=== PATIENT | female | born 1985 | race Caucasian/White ===

== ENCOUNTER 2019-08-08 07:49 | Day surgery (SDC) | payer BC, MEDICAID ==
[2019-08-08] MEDS ORDERED: Lactated Ringers 1,000 ML IV SCH (08:00)
[2019-08-08] MEDS ORDERED: Midazolam 1 MG/ML 2 ML SDV ONE (08:22)
[2019-08-08] MEDS ORDERED: fentaNYL 250 MCG/5 ML SDV ONE (08:22)
[2019-08-08] MEDS ORDERED: Propofol 200 MG/20 ML SDV ONE (08:22)
[2019-08-08] MEDS ORDERED: Norflurane/HFc 245FA Medium Stream Spray 103.5 ML Can TOP PRN (08:48)
[2019-08-08] MEDS ORDERED: Ketamine 500 mg/10 ML MDV ONE (09:06)
--- NOTE | 2019-08-08 09:06 | PCM.PN ---
- General Info Date of Service: 08/08/19 - Review of Systems Systems Review Comment:: 34 y/o female with ventral incisional hernia here for repair with mesh. she is medically stable to proceed with no significant changes in her health status since her recent evaluation. I have discussed the proposed ventral hernia repair with the patient. The procedures again reviewed with her as well as instructions. She agrees to proceed accepting risks. - Patient Data Weight - Most Recent: 99.79 kg Lab Results Last 24 Hours: Laboratory Results - last 24 hr 08/08/19 Range/Units 08:00 Urine HCG, Qual Negative Med Orders - Current: Current Medications Lactated Ringer's (Ringers, Lactated) 1,000 mls @ 125 mls/hr IV ASDIRECTED FAYE Last Admin: 08/08/19 09:03 Dose: 125 mls/hr Norflurane (Pain Ease [place]) 1 ml TOP ASDIRECTED PRN PRN Reason: IV starts or lab draws Sodium Chloride (Saline Flush) 10 ml FLUSH ASDIRECTED PRN PRN Reason: Keep Vein Open Discontinued Medications Fentanyl (Sublimaze) Confirm Administered Dose 500 mcg .ROUTE .STK-MED ONE Stop: 08/08/19 08:23 Midazolam HCl (Versed 1 Mg/Ml) Confirm Administered Dose 2 mg .ROUTE .STK-MED ONE Stop: 08/08/19 08:23 Propofol (Diprivan 20 Ml) Confirm Administered Dose 200 mg .ROUTE .STK-MED ONE Stop: 08/08/19 08:23 - Problem List Review Problem List Initiated/Reviewed/Updated: Yes - My Orders Last 24 Hours: My Active Orders 08/08/19 08:00 Patient Status [ADT] Routine Peripheral IV Care [RC] . DIRECTED Verify Patient Consent Obtain [RC] ASDIRECTED Lactated Ringers [Ringers, Lactated] 1,000 ml IV ASDIRECTED Sodium Chloride 0.9% [Saline Flush] 10 ml FLUSH ASDIRECTED PRN Peripheral IV Insertion Adult [OM.PC] Routine 08/08/19 08:48 Norflurane/HFc 245FA [Pain Ease [place]] 1 ml TOP ASDIRECTED PRN - Assessment Assessment:: ventral incisional hernia - Plan Plan:: ventral incisional hernia repair with mesh
[2019-08-08] MEDS ORDERED: Ketorolac 30 MG/ML SDV IVPUSH ONE (09:10)
[2019-08-08] MEDS ORDERED: Dexamethasone 10 MG/ML SDV IVPUSH ONE (09:10)
[2019-08-08] MEDS ORDERED: Succinylcholine 200 MG/10 ML MDV IV ONE (09:10)
[2019-08-08] MEDS ORDERED: Neostigmine Methylsulfate 10 MG/10 ML MDV IV ONE (09:10)
[2019-08-08] MEDS ORDERED: Rocuronium 100 MG/10 ML MDV IV ONE (09:10)
[2019-08-08] MEDS ORDERED: Ondansetron 4 MG/2 ML SDV IVPUSH ONE (09:10)
[2019-08-08] MEDS ORDERED: Glycopyrrolate 0.2 MG/ML SDV IVPUSH ONE (09:10)
[2019-08-08] MEDS ORDERED: ceFAZolin 1 GM Vial IV ONE (09:10)
[2019-08-08] MEDS ORDERED: Ketamine 500 mg/10 ML MDV IV ONE (09:10)
[2019-08-08] MEDS ORDERED: ePHEDrine 50 MG/ML SDV IV ONE (09:10)
[2019-08-08] MEDS ORDERED: Ondansetron 4 MG/2 ML SDV IVPUSH PRN ×2 (11:56→12:02)
--- NOTE | 2019-08-08 11:56 | PCM.OPNOTE ---
- General Post-Op/Procedure Note Date of Surgery/Procedure: 08/08/19 Operative Procedure(s): Repair Ventral Incisional Hernia with Mesh Findings: large ventral hernia above umbilicus Pre Op Diagnosis: Ventral Incisional Hernia Post-Op Diagnosis: Same Anesthesia Technique: General ET Tube Primary Surgeon: Pramod Mccloud Pathology: Hernia sac Output, Urine Amount: 0 EBL in mLs: 50 Surgical Drain/Tube Type: [place] Drain Complications: None Condition: Good
[2019-08-08] MEDS ORDERED: diphenhydrAMINE 25 MG Cap PO PRN (12:00)
[2019-08-08] MEDS ORDERED: Albuterol/Ipratropium 3.0-0.5 MG/3 ML Neb Soln INH PRN (12:00)
[2019-08-08] MEDS ORDERED: diphenhydrAMINE 50 MG/ML SDV IVPUSH PRN (12:00)
[2019-08-08] MEDS ORDERED: Naloxone 0.4 MG/ML SDV IVPUSH PRN (12:00)
[2019-08-08] MEDS ORDERED: ceFAZolin 1 GM Vial IVPUSH SCH (12:00)
[2019-08-08] MEDS: SODIUM CHLORIDE 0.9% IVPUSH PRN ×4 (12:50→17:49)
[2019-08-08] MEDS: Lactated Ringers 1,000 ML IV SCH (12:50)
[2019-08-08] MEDS: FENTANYL IVPUSH PRN ×4 (12:50→17:49)
[2019-08-08] MEDS ORDERED: LORazepam 2 MG/ML SDV IVPUSH PRN (14:45)
[2019-08-08] MEDS: Acetaminophen/HYDROcodone 325-5 MG Tab PO PRN ×2 (16:56→21:04)
[2019-08-08] MEDS: ceFAZolin 1 GM Vial IVPUSH SCH (16:58)
[2019-08-08] MEDS: Sodium Chloride 0.9% 10 ML Syringe FLUSH PRN ×2 (17:01→17:51)
[2019-08-08] MEDS: Ketorolac 30 MG/ML SDV IVPUSH SCH (17:48)
[2019-08-08] MEDS ORDERED: Simethicone 80 MG Tab.Chew PO PRN (20:53)
[2019-08-08] MEDS: Docusate Sodium 100 MG Cap PO SCH (21:25)
[2019-08-08] MEDS: Famotidine 20 MG/2 ML SDV IVPUSH SCH (21:25)
[2019-08-09] MEDS: Ketorolac 30 MG/ML SDV IVPUSH SCH ×3 (00:11→11:38)
[2019-08-09] MEDS: ceFAZolin 1 GM Vial IVPUSH SCH (00:13)
[2019-08-09] MEDS: Lactated Ringers 1,000 ML IV SCH (00:31)
[2019-08-09] MEDS: SODIUM CHLORIDE 0.9% IVPUSH PRN ×2 (01:08)
[2019-08-09] MEDS: FENTANYL IVPUSH PRN ×2 (01:08)
[2019-08-09 08:04] LABS: CHLORIDE,CL 107 mmol/L (98-107); SODIUM,NA 141 mmol/L (136-145)
[2019-08-09] MEDS ORDERED: Bisacodyl 5 MG Tab PO ONE (08:39)
[2019-08-09] MEDS ORDERED: Magnesium Hydroxide 400 MG/5 ML Susp 30 ML Cup PO ONE (08:39)
[2019-08-09] MEDS: Famotidine 20 MG/2 ML SDV IVPUSH SCH (08:56)
[2019-08-09] MEDS: Docusate Sodium 100 MG Cap PO SCH (08:56)
--- NOTE | 2019-08-09 09:21 | OR ---
Date of Procedure: 08/08/2019 REFERRING PROVIDER: Haley Loving PA-C PREOPERATIVE DIAGNOSIS: Ventral incisional hernia. POSTOPERATIVE DIAGNOSIS: Ventral incisional hernia. OPERATION PERFORMED: Repair of ventral incisional hernia with mesh. INDICATIONS FOR SURGERY: This 34-year-old female has a history of multiple previous abdominal surgeries including a recent laparotomy through an upper midline incision. She has developed a hernia in the midportion of this incision. This hernia is increasing in size and symptoms, and she comes for elective repair. FINDINGS: In the upper midline of the patient's abdomen, there is a large ventral incisional hernia in the midline. The main hernia is in the lower aspect of the incision, but the entire upper length of the incision shows multiple smaller defects and attenuation of the fascia, so the hernia extends along the entire length of the incision, a distance of approximately 8 inches. There are some minor omental adhesions to the hernia sac, but no other indication of bowel involvement in this hernia. DESCRIPTION OF PROCEDURE: The patient was taken to the operating room. She was given general endotracheal anesthesia and the abdomen was sterilely prepped and draped. Vertical midline incision was made utilizing the old surgical scar. Dissection proceeded down onto the hernia sac, which was carefully identified and isolated from the surrounding subcutaneous tissue down to the level of the fascia. The hernia sac was opened, and then the hernia sac was excised from the edge of the fascia with cautery. The fascial edge is clearly defined, trimmed of fatty tissue back to good quality fascia exposing a good surface for reapproximation. It was noted that the upper portion of the fascial incision had multiple defects and attenuated fascia, so this was opened as well, and this attenuated fascia and these defects were also excised to provide a clean approximating fascial surface along the entire length of the incision. Because of the patient's history of multiple intestinal adhesions and GI problems after multiple previous surgeries, it was elected to place the mesh in an onlay fashion so there would be no complication of her GI function from intraperitoneal mesh. This was then carried out by approximating the fascial edges in the midline with interrupted #1 Prolene in a Smead-Celestin suturing technique and incorporating on the anterior surface of the fascia the polypropylene mesh. This is carried out along the entire length of the fascial defect approximating all of the fascial edges in the midline and securely closing the hernia defect. Once the defect had been completely closed, the lateral edge of the mesh is secured down to the exposed underlying anterior surface of the fascia with a running 2-0 Vicryl. The wound was irrigated with Ancef and saline solution, which had also been used to soak the mesh prior to its placement. The [place] drain was placed through a separate stab incision onto the surface of the mesh and connected to bulb suction. The drain was secured to the skin with 2-0 silk. Interrupted 3-0 Vicryl was then used to approximate the subcutaneous tissue down to the underlying mesh to limit seroma formation, and the skin was closed with skin jose. Sterile dressing was placed. The patient was then awakened, extubated, and taken from the operating room in satisfactory condition. ESTIMATED BLOOD LOSS: 50 mL. COMPLICATIONS: None. PROGNOSIS: Good. HAL Mccloud MD /[id number] MTDD
[2019-08-09] MEDS: Acetaminophen/HYDROcodone 325-5 MG Tab PO PRN ×2 (09:31→13:34)
[2019-08-09] MEDS ORDERED: FLU Vacc QS2019-20(6MOS+)/PF 60 MCG/0.5 ML SYRINGE IM ONE (10:00)
--- NOTE | 2019-08-09 13:16 | PCM.DCSUM1 ---
Discharge Summary - Hospital Course HPI Initial Comments: See admission H&P Brief History: See admission H&P. Diagnosis: Stroke: No Modified Dickenson Scale: No Symptoms at All Modified Lorie Scale Score: 0 - Discharge Data Discharge Date: 08/09/19 Discharge Disposition: Home, Self-Care 01 Condition: Good - Referral to Home Health Primary Care Physician: Haley Loving PA-C - Discharge Diagnosis/Problem(s) (1) Abdominal hernia SNOMED Code(s): 80635588 ICD Code: K46.9 - UNSPECIFIED ABDOMINAL HERNIA WITHOUT OBSTRUCTION OR GANGRENE Status: Acute Priority: High Current Visit: Yes Problem Details : Pramod Mccloud MD did consult with me after the incisional ventral abdominal hernia repair, which should occur without complications on 08/08/2019. Note that the patient did receive postoperative IV antibiotics, however does not need to be discharged with antibiotics per recommendations from her general surgeon as above. He is also requesting discharge with limited amount of narcotic medications with the patient extensively counseled prior to discharge about using this prescription for severe pain only. Follow-up by regular providers as per discharge instructions. Activity restrictions were discussed. Some delay in discharge secondary to problems with constipation from her IV fentanyl and oral Sweet[place], which she received during this hospitalization. Note previous history of recurrent bowel obstructions with patient needing Colace and milk of magnesia prior to discharge. Qualifiers: Hernia type: ventral Obstruction and gangrene presence: without obstruction or gangrene Qualified Code(s): K43.9 - Ventral hernia without obstruction or gangrene (2) Obesity SNOMED Code(s): 008890638, 145400608 ICD Code: E66.9 - OBESITY, UNSPECIFIED Status: Chronic Priority: Medium Current Visit: Yes Problem Details: Status post gastric bypass surgery with excellent weight loss after this procedure. Continue weight loss and moderation , post-gastric bypass supplements, etc. Qualifiers: Obesity type: due to excess calories Obesity classification: adult class 1 (BMI 30 - 34.9) Serious obesity comorbidity presence: without serious comorbidity Body mass index: unspecified BMI Qualified Code(s): E66.09 - Other obesity due to excess calories (3) Anemia SNOMED Code(s): 332734868 ICD Code: D64.9 - ANEMIA, UNSPECIFIED Status: Acute Priority: Medium Current Visit: Yes Onset Date: 08/09/19 Problem Details: Mild anemia with status post gastric bypass. No significant blood loss during surgical procedure per consultation from general surgeon as above. Continue to observe closely by regular provider. Qualifiers: Anemia type: unspecified type Qualified Code(s): D64.9 - Anemia, unspecified (4) Hypoalbuminemia SNOMED Code(s): 412388899 ICD Code: E88.09 - OTH DISORDERS OF PLASMA-PROTEIN METABOLISM, NEC Status: Acute Priority: Medium Current Visit: Yes Onset Date: 08/09/19 Problem Details: Observe for now - Patient Summary/Data Operative Procedure(s) Performed: Repair Ventral Incisional Hernia with Mesh Complications: None Consults: Pramod Mccloud MD-General surgeon Labs Pending at D/C: None Recommended Follow-up Testing/Procedures: As per discharge instructions Planned Operative Procedure(s) after DC: None Hospital Course: The patient underwent an outpatient ventral abdominal hernia repair without complications. She was subsequently transferred to observation status for pain control with CLIENT ARCHITECT IV fentanyl with an overall good pain control. The patient also did receive some occasional oral Sweetwater with additional regular scheduled IV Toradol. IV Pepcid was given as GI prophylaxis. Patient did have some problems with constipation secondary to the narcotic medications, which was successfully treated with Dulcolax and milk of magnesia. Further close follow- up by regular provider and general surgeon as per discharge instructions. Note that the patient did have a good bowel movement and had excellent urine output prior to discharge. No complications during this hospitalization. - Patient Instructions Diet: Full Liquid Diet Diet, Other: Advance to heart healthy post gastric bypass diet thereafter Activity: As Tolerated, No Lifting Over 10 Pounds Driving: Do Not Drive Showering/Bathing: May Shower (Keep WILFRIDO drain site dry) Wound/Incision Care: Keep Operative Site/Wound Site Clean and Dry, Change Dressing Daily Notify Provider of: Fever, Increased Pain, Swelling and Redness, Drainage, Nausea and/or Vomiting - Discharge Plan *PRESCRIPTION DRUG MONITORING PROGRAM REVIEWED*: Yes *COPY OF PRESCRIPTION DRUG MONITORING REPORT IN PATIENT OTIS: Yes Prescriptions/Med Rec: Acetaminophen/HYDROcodone [[place] 325-5 MG] 1 tab PO Q4H PRN #10 tablet PRN Reason: Pain (Severe 7-10) Docusate Sodium [Colace] 100 mg PO BID #30 cap Home Medications: Home Meds Vit/Iron Fum/Folic AC [ Tablet] 1 each PO DAILY 08/12/13 [ History] Vitamin B Complex 1 each PO QAM 08/12/13 [History] Ferrous Fumarate 324 mg PO BID 10/06/15 [History] Thiamine [Vitamin B-1] 100 mg PO DAILY 10/07/15 [History] Cyanocobalamin (Vitamin B-12) [Cyanocobalamin Injection] 1,000 mcg IJ ASDIRECTED 08/07/19 [History] Ipratropium/Albuterol Sulfate [Iprat-Albut 0.5-3(2.5) MG/3 ML] 3 ml INH Q4HR PRN 08/07/19 [History] Iron,Carbonyl/Ascorbic Acid [Vitron-C Tablet] 1 tab PO DAILY 08/07/19 [History] Non-Formulary Medication [NF Drug] 2 tab PO DAILY 08/07/19 [History] Cholecalciferol (Vitamin D3) [Vitamin D3] 25 mcg PO DAILY 08/08/19 [History] Zinc Gluconate [Zinc] 50 mg PO DAILY 08/08/19 [History] Acetaminophen/HYDROcodone [[place] 325-5 MG] 1 tab PO Q4H PRN #10 tablet 08/09/19 [Rx] Docusate Sodium [Colace] 100 mg PO BID #30 cap 08/09/19 [Rx] Simethicone 160 mg PO Q6H PRN tab.chew 08/09/19 [Rx] Oxygen Therapy Mode: Room Air Patient Handouts: Ventral Hernia, Hernia, Adult, [id number] - Discharge Summary/Plan Comment DC Time >30 min.: Yes (Coordination of care ) Discharge Summary/Plan Comment: As above. Extensive precautions were given to the patient, who is in agreement with the treatment plan. See Patient Instructions for further treatment and plan. - General Info Date of Service: 08/09/19 Admission Dx/Problem (Free Text: Incisional ventral abdominal hernia Functional Status: Reports: Pain Controlled, Tolerating Diet, Ambulating, Urinating, Incentive Spirometry. Denies: New Symptoms Numeric/FACES Score: 5 - Review of Systems General: Reports: Fever (Postoperatively however resolved at time of discharge ) , Appetite (Adequate). Denies: Weakness, Fatigue, Malaise, Chills, Night Sweats HEENT: Reports: No Symptoms. Denies: Dysphasia, Ear Pain, Eye Pain, Headaches, Sinus Congestion, Sore Throat, Rhinitis, Visual Changes Pulmonary: Reports: No Symptoms. Denies: Shortness of Breath, Pleuritic Chest Pain, Cough, Sputum, Hemoptysis, Wheezing Cardiovascular: Reports: Edema (Stable dependent). Denies: Chest Pain, Palpitations, Dyspnea on Exertion, Orthopnea, Lightheadedness Gastrointestinal: Reports: Abdominal Pain, Constipation, Flatus. Denies: Decreased Appetite, Diarrhea, Difficulty Swallowing, Hematochezia, Melena, Nausea, Vomiting Genitourinary: Reports: No Symptoms. Denies: Dysuria, Frequency, Burning, Pain , Urgency, Incontinence, Hematuria, Retention, Flank Pain Musculoskeletal: Reports: No Symptoms. Denies: Neck Pain, Shoulder Pain, Arm Pain, Back Pain, Leg Pain Skin: Reports: Other (Operative site clean and dry). Denies: Diaphoresis, Pruritis, Rash Neurological: Reports: No Symptoms. Denies: Confusion, Dizziness, Numbness, Paresthesia, Tingling, Weakness Psychiatric: Reports: No Symptoms. Denies: Confusion, Depression, Anxiety, Agitation, Hallucinations, Homicidal Ideation - Patient Data Vitals - Most Recent: Last Vital Signs Temp 36.8 C 08/09/19 08:00 Pulse 77 08/09/19 08:00 Resp 16 08/09/19 08:00 BP 107/57 L 08/09/19 08:00 Pulse Ox 100 08/09/19 08:00 Vital Signs - 24 hr 08/08/19 08/08/19 08/08/19 15:00 16:00 20:00 Temperature [ 37.9 C 37.4 C 37.8 C Oral] Pulse, Peripheral [ Left Pulse Oximetry] Pulse, 83 68 85 Peripheral [ Right Pulse Oximetry] Respiratory 16 16 16 Rate Blood Pressure 116/63 116/61 115/58 L [Left Lower Arm ] Blood Pressure [Left Upper Arm ] O2 Sat by Pulse 99 100 99 Oximetry 08/08/19 08/09/19 08/09/19 22:11 00:00 04:00 Temperature [ 36.9 C 37.0 C 37.0 C Oral] Pulse, 68 68 Peripheral [ Left Pulse Oximetry] Pulse, Peripheral [ Right Pulse Oximetry] Respiratory 16 16 Rate Blood Pressure [Left Lower Arm ] Blood Pressure 107/58 L 94/59 L [Left Upper Arm ] O2 Sat by Pulse 96 100 Oximetry 08/09/19 08/09/19 08:00 12:00 Temperature [ 36.8 C 37.2 C Oral] Pulse, Peripheral [ Left Pulse Oximetry] Pulse, 77 81 Peripheral [ Right Pulse Oximetry] Respiratory 16 16 Rate Blood Pressure 107/57 L 116/64 [Left Lower Arm ] Blood Pressure [Left Upper Arm ] O2 Sat by Pulse 100 100 Oximetry Weight - Most Recent: 99.79 kg I&O - Last 24 hours: Intake & Output 08/08/19 08/09/19 08/09/19 22:59 06:59 14:59 Intake Total 1290 1152 640 Output Total 750 730 300 Balance 540 422 340 Imaging Impressions - Last 24 hrs: Official chest x-ray report from 08/09/2019, including chest x-ray upright, 1 view, and 1 view upright abdominal view, shows normal mild postoperative free air with somewhat increased bowel gaseous distention however no evidence fluid levels, ileus, obstruction, pulmonary infiltrates, pneumothorax, etc. Lab Results - Last 24 hrs: Laboratory Results - last 24 hr 08/09/19 08/09/19 Range/Units 07:25 07:25 WBC 9.8 (4.0-10.2) K/uL RBC 3.52 L (3.77-5.09) M/uL Hgb 11.0 L (11.7-15.5) g/dL Hct 33.6 L (34.0-46.0) % MCV 95.5 (84.0-98.0) fL MCH 31.3 (28.2-33.3) pg MCHC 32.7 (31.7-36.0) g/dL RDW 12.4 (11.2-14.1) % Plt Count 285 (150-350) K/uL Neut % (Auto) 67.4 (45.0-80.0) % Lymph % (Auto) 20.5 (10.0-50.0) % [place] % (Auto) 8.2 (2.0-14.0) % Eos % (Auto) 3.6 (0.0-5.0) % Baso % (Auto) 0.3 (0.0-2.0) % Neut # (Auto) 6.61 (1.40-7.00) K/uL Lymph # (Auto) 2.01 (0.50-3.50) K/uL [place] # (Auto) 0.80 (0.00-1.00) K/uL Eos # (Auto) 0.35 (0.00-0.50) K/uL Baso # (Auto) 0.03 (0.00-0.20) K/uL Sodium 141 (136-145) mmol/L Potassium 4.2 (3.5-5.1) mmol/L Chloride 107 (98-107) mmol/L Carbon Dioxide 24.4 (21.0-32.0) mmol/L BUN 10 (7-18) mg/dL Creatinine 0.79 (0.51-1.17) mg/dL Est Cr Clr Drug Dosing 84.57 mL/min Estimated GFR (MDRD) > 60 mL/min Glucose 105 (74-106) mg/dL Calcium 8.6 (8.5-10.1) mg/dL Total Bilirubin 0.4 (0.2-1.0) mg/dL AST 16 (15-37) U/L ALT 19 (12-78) U/L Alkaline Phosphatase 92 (46-116) IU/L Total Protein 6.1 L (6.4-8.2) g/dL Albumin 3.0 L (3.4-5.0) g/dL ALFREDA Results - Last 24 hrs: None Med Orders - Current: Current Medications Hydrocodone Bitart/Acetaminophen ([place] 325-5 Mg) 2 tab PO Q4H PRN PRN Reason: Pain (moderate 4-6) Last Admin: 08/09/19 09:31 Dose: 2 tab Albuterol/Ipratropium (Duoneb 3.0-0.5 Mg/3 Ml) 3 ml INH Q4HR PRN PRN Reason: Shortness of Breath Fentanyl 300 mcg/ Sodium (Chloride 24 ml) 0 mcg IVPUSH .CLIENT ARCHITECT PRN; Protocol PRN Reason: Pain Last Admin: 08/09/19 01:08 Dose: 30 ml Diphenhydramine HCl (Benadryl) 25 mg IVPUSH Q6H PRN PRN Reason: Itching Last Admin: 08/08/19 14:37 Dose: 25 mg Diphenhydramine HCl (Benadryl) 25 mg PO Q6H PRN PRN Reason: Itching Docusate Sodium (Colace) 100 mg PO BID [facility] Last Admin: 08/09/19 08:56 Dose: 100 mg Famotidine (Pepcid) 20 mg IVPUSH Q12H [facility] Last Admin: 08/09/19 08:56 Dose: 20 mg Lactated Ringer's (Ringers, Lactated) 1,000 mls @ 75 mls/hr IV ASDIRECTED [facility] Last Admin: 08/09/19 00:31 Dose: 100 mls/hr Ketorolac Tromethamine (Toradol) 30 mg IVPUSH Q6H [facility] Last Admin: 08/09/19 11:38 Dose: 30 mg Lorazepam (Ativan) 0.5 mg IVPUSH Q4H PRN PRN Reason: Anxiety Naloxone HCl (Narcan) 0.04 mg IVPUSH Q3M PRN PRN Reason: Respiratory Depression Norflurane (Pain Ease [place]) 1 ml TOP ASDIRECTED PRN PRN Reason: IV starts or lab draws Last Admin: 08/08/19 09:06 Dose: 1 spray Ondansetron HCl (Zofran) 4 mg IVPUSH Q6H PRN PRN Reason: Nausea/Vomiting Simethicone (Simethicone) 160 mg PO Q6H PRN PRN Reason: Abdominal Pain Last Admin: 08/08/19 21:25 Dose: 160 mg Sodium Chloride (Saline Flush) 10 ml FLUSH ASDIRECTED PRN PRN Reason: Keep Vein Open Last Admin: 08/08/19 17:51 Dose: 10 ml Discontinued Medications Bisacodyl (Dulcolax) 10 mg PO ONETIME ONE Stop: 08/09/19 08:40 Last Admin: 08/09/19 08:56 Dose: 10 mg Cefazolin Sodium (Ancef) 1 gm IVPUSH Q8H [facility] Stop: 08/08/19 20:01 Last Admin: 08/08/19 18:39 Dose: Not Given Cefazolin Sodium (Ancef) 1 gm IVPUSH Q8H [facility] Stop: 08/09/19 01:01 Last Admin: 08/09/19 00:13 Dose: 1 gm Fentanyl (Sublimaze) Confirm Administered Dose 500 mcg .ROUTE .STK-MED ONE Stop: 08/08/19 08:23 Last Admin: 08/08/19 14:28 Dose: Not Given Lactated Ringer's (Ringers, Lactated) 1,000 mls @ 125 mls/hr IV ASDIRECTED FAYE Last Admin: 08/08/19 09:03 Dose: 125 mls/hr Influenza Virus Vaccine (Pharmacy To Dose - Influenza Vaccine) 1 each IM ONETIME ONE Stop: 08/08/19 09:44 Influenza Virus Vaccine (Fluzone Quad 3518-3917 Syringe) 60 mcg IM .ONCE ONE Stop: 08/09/19 10:01 Last Admin: 08/09/19 11:49 Dose: 60 mcg Ketamine HCl (Ketalar) Confirm Administered Dose 500 mg .ROUTE .STK-MED ONE Stop: 08/08/19 09:07 Last Admin: 08/08/19 14:28 Dose: Not Given Magnesium Hydroxide (Milk Of Magnesia) 30 ml PO ONETIME ONE Stop: 08/09/19 08:40 Last Admin: 08/09/19 08:56 Dose: 30 ml Midazolam HCl (Versed 1 Mg/Ml) Confirm Administered Dose 2 mg .ROUTE .STK-MED ONE Stop: 08/08/19 08:23 Last Admin: 08/08/19 14:28 Dose: Not Given Propofol (Diprivan 20 Ml) Confirm Administered Dose 200 mg .ROUTE .STK-MED ONE Stop: 08/08/19 08:23 Last Admin: 08/08/19 14:28 Dose: Not Given - Exam Quality Assessment: Reports: DVT Prophylaxis. Denies: Supplemental Oxygen, Central Line/PICC, Urine Catheter, Skin Breakdown, Restraints General: Reports: Alert, Oriented, Cooperative, No Acute Distress HEENT: Reports: Pupils Equal, Pupils Reactive, EOMI, Mucous Membr. Moist/[place] Neck: Reports: Supple, Trachea Midline, No JVD, No Thyromegaly, +2 Carotid Pulse wo Bruit Lungs: Reports: Clear to Auscultation, Normal Respiratory Effort. Denies: Rub Cardiovascular: Reports: Regular Rate, Regular Rhythm, No Murmurs. Denies: Gallops, Rubs GI/Abdominal Exam: No Organomegaly, No Distention, No Abnormal Bruit, No Mass, Tender (Normal postoperative localized tenderness), Abnormal Bowel Sounds (Mild diffuse increased bowel sounds none high-pitched in nature), Other (Incisional site shows no local signs of infection with dry abdominal dressing and WILFRIDO tube having 30 ml of drainage since surgery). No: Guarding, Rigid, Rebound (Female) Exam: Deferred Rectal (Female) Exam: Deferred Back Exam: Reports: Normal Inspection, Full Range of Motion. Denies: CVA Tenderness (L), CVA Tenderness (R), Muscle Spasm Extremities: Normal Range of Motion, Non-Tender, Pedal Edema (Bilateral trace pedal/pretibial edema). No: Marcie's Sign Skin: Reports: Other (Surgical site as above). Denies: Ecchymosis Wound/Incisions: Reports: Healing Well, Dressing Dry and Intact, Drainage (WILFRIDO drainage 30 mL as above) Neurological: Reports: No New Focal Deficit Psy/Mental Status: Reports: Alert, Normal Affect, Normal Mood. Denies: Agitated , Hallucinations, Withdrawal Symptoms
[2019-08-09 13:33] VITALS: BP 116/64; PULSE 81
--- NOTE | 2019-08-09 14:23 | PCM.SN ---
- Free Text/Narrative Note: Discharge instructions: 1. Followup with your regular provider as scheduled on 08/13/2019 for reevaluation and possible removal of your WILFRIDO drain, which may be removed if there is less than 30 mils of drainage in a 24-hour period. Bring these discharge instructions with you to that visit. 2. Otherwise follow-up with Pramod Mccloud MD 08/22/2019 with this facility to notify you with the exact time on the day prior to this appointment 3. Tylenol 650 mg by mouth every 4 hours and/or OTC ibuprofen 2-3 tabs by mouth every 6 hours with food as directed./needed. You may stagger these medications for 48-72 hours only, which essentially means that you are receiving a pain medication about every 2 hours. 4. Sedation, bowel obstruction, etc. precautions with narcotic medications and use this medication with extreme discretion and for severe pain only as discussed. 5. Immediately after this visit verify that your cellular telephone's voicemail has been activated and is empty. Also verify that your home telephone 's answering machine is operating properly and has space to receive messages. Note that it is sometimes necessary for us to be able to contact you at a later date to discuss your medical care. 6. Please remember that we are ALWAYS here for you and want to answer any questions you may have. Feel free to call the hospital any time and we call you back RAYNE.
== END 2019-08-09 15:15 | disposition home or self-care (01) ==
LOC: LL.SDS 07:49 → LL.MS 12:30 → LL.SDS 08-09 15:15
PROVIDERS: ATTEND Family Medicine
DX: K43.2 Incisional hernia without obstruction or gangrene (principal); D64.9 Anemia, unspecified; E88.09 Other disorders of plasma-protein metabolism, not elsewhere classified; Z88.2 Allergy status to sulfonamides; Z88.3 Allergy status to other anti-infective agents; Z68.39 Body mass index [BMI] 39.0-39.9, adult
CPT/HCPCS: 36415; 71045; 74018; 80053; 81025; 85025; 90686; 94761; A9270-GY; C1781; J0330; J0690; J1100; J1200; J1885; J2405; J2710; J3010; J3490; J7120

== ENCOUNTER 2021-06-30 16:55 | Emergency (ER) | payer MEDICAID ==
[2021-06-30] MEDS ORDERED: Sodium Chloride 0.9% 10 ML Syringe FLUSH PRN (17:08)
[2021-06-30] MEDS ORDERED: Iopamidol 612 MG/ML 100 ML Bottle IVPUSH STA (17:11)
[2021-06-30] MEDS ORDERED: Ondansetron 4 MG/2 ML SDV IV ONE (17:12)
[2021-06-30] MEDS ORDERED: Lactated Ringers 1,000 ML IV ONE (17:12)
[2021-06-30] MEDS ORDERED: Morphine 4 MG/ML Syringe IVPUSH ONE (17:28)
--- NOTE | 2021-06-30 17:28 | EDM.PDOC ---
ED HPI GENERAL MEDICAL PROBLEM - General Chief Complaint: Abdominal Pain Stated Complaint: gi Time Seen by Provider: 06/30/21 17:00 Source of Information: Reports: Patient History Limitations: Reports: No Limitations - History of Present Illness INITIAL COMMENTS - FREE TEXT/NARRATIVE: Patient comes emergency department today from the clinic for evaluation of abdominal pain. This patient presented to the clinic today and was sent to the emergency department and by provider report had severe unrelenting abdominal pain and has a rigid abdomen. This patient has a history of a gastric bypass for which she has had multiple bowel obstructions following her gastric bypass. She has required surgery for everyone of the bowel obstructions. Her last bowel obstruction was in 2018. She was questioning if she has had some constipation over the past couple of days that she had is been more difficult for her to have bowel movements. Today she developed diarrhea. She also noted some intermittent mild pain in her abdomen. She has had nausea without vomiting. No fever no chills. No hematuria dysuria urinary frequency. No flank pain. No chest pain no shortness of with or difficulty breathing. No cough or congestion. No weakness dizziness lightheadedness palpitations or syncope. She has not been on antibiotics recently. She has taken increased amounts of her medication to help with constipation. Her pain waxes and wanes. She has had about 10 loose diarrheal stools today. She has had no recent travel. She has not been on a antibiotic recently. The patient is not currently having pain at all when she presents to the ED. Her intermittent mild pain as she describes it started at noon today. Abdominal Pain Score (Numeric/FACES): 6 - Related Data Allergies Allergy/AdvReac Type Severity Reaction Status Date / Time Sulfa (Sulfonamide Allergy Intermediate Difficulty Verified 06/30/21 16:58 Antibiotics) Breathing fluconazole [From Diflucan] Allergy Rash Verified 06/30/21 16:58 Home Meds: Home Meds Vit/Iron Fum/Folic AC [ Tablet] 1 each PO DAILY 08/12/13 [History] Vitamin B Complex 1 each PO QAM 08/12/13 [History] Ferrous Fumarate 324 mg PO BID 10/06/15 [History] Thiamine [Vitamin B-1] 100 mg PO DAILY 10/07/15 [History] Cyanocobalamin (Vitamin B-12) [Cyanocobalamin Injection] 1,000 mcg IJ ASDIRECTED 08/07/19 [History] Ipratropium/Albuterol Sulfate [Iprat-Albut 0.5-3(2.5) MG/3 ML] 3 ml INH Q4HR PRN 08/07/19 [History] Iron,Carbonyl/Ascorbic Acid [Vitron-C Tablet] 1 tab PO DAILY 08/07/19 [History] Non-Formulary Medication [NF Drug] 2 tab PO DAILY 08/07/19 [History] Cholecalciferol (Vitamin D3) [Vitamin D3] 25 mcg PO DAILY 08/08/19 [History] Zinc Gluconate [Zinc] 50 mg PO DAILY 08/08/19 [History] Simethicone 160 mg PO Q6H PRN tab.chew 08/09/19 [Rx] Acetaminophen [Tylenol] 650 mg PO Q6HR PRN 06/30/21 [History] LORazepam [Ativan] 0 mg PO BEDTIME 06/30/21 [History] Magnesium 400 mg PO QAM 06/30/21 [History] Norethindrone [Norethindrone Acetate] 5 mg PO BEDTIME 06/30/21 [History] Polyethylene Glycol [Polyox Wsr-301] 0 gm PO BID 06/30/21 [History] buPROPion [Wellbutrin] 100 mg PO BID 06/30/21 [History] Past Medical History Gastrointestinal History: Reports: Bowel Obstruction, Other (See Below) Other Gastrointestinal History: Ventral hernia Genitourinary History: Reports: Urinary Incontinence 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 (See Below) Other TELEVISION CAMERA OPERATOR History: Intermittent green vaginal discharge Psychiatric History: Reports: Anxiety, Other (See Below) Other Psychiatric History: Fatigue Endocrine/Metabolic History: Reports: Obesity/BMI 30+, Vitamin D Deficiency, Other (See Below) Other Endocrine/Metabolic History: Multiple vitamin deficiencies d/t gastric bypass Hematologic History: Reports: B12 Deficiency, Iron Deficiency - Past Surgical History HEENT Surgical History: Reports: Tonsillectomy GI Surgical History: Reports: Bariatric Procedure, Cholecystectomy, Other (See Below) Other GI Surgeries/Procedures: Multiple surgeries for bowel obstruction Female Surgical History: Reports: Tubal Ligation Social & Family History - Caffeine Use Caffeine Use: Reports: Coffee, Soda ED ROS GENERAL - Review of Systems Review Of Systems: Comprehensive ROS is negative, except as noted in HPI. ED EXAM, GI/ABD - Physical Exam Exam: See Below Exam Limited By: No Limitations General Appearance: Alert, WD/WN, No Apparent Distress, Obese Respiratory/Chest: No Respiratory Distress, Lungs Clear Cardiovascular: Normal Peripheral Pulses, Regular Rate, Rhythm GI/Abdominal Exam: Normal Bowel Sounds, Soft, No Mass, Tender (Generalized tenderness more in the RUQ R lateral abd. ), Abnormal Bowel Sounds (Decreased bowel sounds. ). No: Guarding, Rigid, Rebound (Female) Exam: Deferred Rectal (Female) Exam: Deferred Back Exam: Normal Inspection, Full Range of Motion Extremities: Normal Inspection, Normal Range of Motion, No Pedal Edema, Normal Capillary Refill Neurological: Alert, Oriented, Normal Cognition, No Motor/Sensory Deficits Psychiatric: Normal Affect, Normal Mood Skin Exam: Warm, Dry, Intact, Normal Color, No Rash Course - Vital Signs Last Recorded V/S: Last Vital Signs Temp 96.7 F L 06/30/21 17:00 Pulse 63 06/30/21 17:00 Resp 16 06/30/21 17:00 BP 124/73 06/30/21 17:00 Pulse Ox 100 06/30/21 17:00 - Orders/Labs/Meds Orders: Active Orders 24 hr Category Date Time Status Peripheral IV Care [RC] . DIRECTED Care 06/30/21 17:09 Active Abdomen Pelvis w Cont [CT] Stat Exams 06/30/21 17:09 Taken Sodium Chloride 0.9% [Saline Flush] Med 06/30/21 17:08 Active 10 ml FLUSH ASDIRECTED PRN Peripheral IV Insertion Adult [OM.PC] Stat Oth 06/30/21 17:08 Ordered Medication Orders Sodium Chloride (Sodium Chloride 0.9% 10 Ml Syringe) 10 ml FLUSH ASDIRECTED PRN PRN Reason: Keep Vein Open Labs: Laboratory Tests 06/30/21 06/30/21 06/30/21 Range/Units 17:23 17:23 17:23 WBC 10.3 H (4.0-10.2) K/uL RBC 4.15 (3.77-5.09) M/uL Hgb 13.4 D (11.7-15.5) g/dL Hct 39.8 (34.0-46.0) % MCV 95.9 D (84.0-98.0) fL MCH 32.3 (28.2-33.3) pg MCHC 33.7 (31.7-36.0) g/dL RDW 12.1 (11.2-14.1) % Plt Count 321 (150-350) K/uL Neut % (Auto) 72.0 (45.0-80.0) % Lymph % (Auto) 21.7 (10.0-50.0) % Esmeralda % (Auto) 5.0 (2.0-14.0) % Eos % (Auto) 1.0 (0.0-5.0) % Baso % (Auto) 0.3 (0.0-2.0) % Neut # (Auto) 7.43 H (1.40-7.00) K/uL Lymph # (Auto) 2.23 (0.50-3.50) K/uL Esmeralda # (Auto) 0.51 (0.00-1.00) K/uL Eos # (Auto) 0.10 (0.00-0.50) K/uL Baso # (Auto) 0.03 (0.00-0.20) K/uL Sodium 141 (136-145) mmol/L Potassium 4.1 (3.5-5.1) mmol/L Chloride 108 H (98-107) mmol/L Carbon Dioxide 22.6 (21.0-32.0) mmol/L Anion Gap 14.5 (7-15) meq/L BUN 13 (7-18) mg/dL Creatinine 0.79 (0.51-1.17) mg/dL Est Cr Clr Drug Dosing TNP Estimated GFR (MDRD) > 60 mL/min Glucose 94 (70-99) mg/dL Lactic Acid 0.7 (0.4-2.0) mmol/L Calcium 8.8 (8.5-10.1) mg/dL Magnesium 2.0 (1.8-2.4) mg/dL Total Bilirubin 0.2 (0.2-1.0) mg/dL AST 15 (15-37) U/L ALT 28 (12-78) U/L Alkaline Phosphatase 104 (46-116) IU/L C-Reactive Protein < 0.2 (<=0.9) mg/dL Total Protein 6.8 (6.4-8.2) g/dL Albumin 3.5 (3.4-5.0) g/dL Lipase 145 (73-393) U/L Specimen Type Urine Color Urine Appearance Urine pH (5.0-9.0) Ur Specific Langlois (1.005-1.030) Urine Protein (NEGATIVE) mg/dL Urine Glucose (UA) (NEGATIVE) mg/dL Urine Ketones (NEGATIVE) mg/dL Urine Occult Blood (NEGATIVE) Urine Nitrite (NEGATIVE) Urine Bilirubin (NEGATIVE) Urine Urobilinogen (0.2-1.0) E.U./dL Ur Leukocyte Esterase (NEGATIVE) Urine RBC /HPF Urine WBC /HPF Ur Epithelial Cells /LPF Urine Bacteria (NONE TO FEW) /HPF Urine HCG, Qual 06/30/21 06/30/21 Range/Units 17:26 17:26 WBC (4.0-10.2) K/uL RBC (3.77-5.09) M/uL Hgb (11.7-15.5) g/dL Hct (34.0-46.0) % MCV (84.0-98.0) fL MCH (28.2-33.3) pg MCHC (31.7-36.0) g/dL RDW (11.2-14.1) % Plt Count (150-350) K/uL Neut % (Auto) (45.0-80.0) % Lymph % (Auto) (10.0-50.0) % Esmeralda % (Auto) (2.0-14.0) % Eos % (Auto) (0.0-5.0) % Baso % (Auto) (0.0-2.0) % Neut # (Auto) (1.40-7.00) K/uL Lymph # (Auto) (0.50-3.50) K/uL Esmeralda # (Auto) (0.00-1.00) K/uL Eos # (Auto) (0.00-0.50) K/uL Baso # (Auto) (0.00-0.20) K/uL Sodium (136-145) mmol/L Potassium (3.5-5.1) mmol/L Chloride (98-107) mmol/L Carbon Dioxide (21.0-32.0) mmol/L Anion Gap (7-15) meq/L BUN (7-18) mg/dL Creatinine (0.51-1.17) mg/dL Est Cr Clr Drug Dosing Estimated GFR (MDRD) mL/min Glucose (70-99) mg/dL Lactic Acid (0.4-2.0) mmol/L Calcium (8.5-10.1) mg/dL Magnesium (1.8-2.4) mg/dL Total Bilirubin (0.2-1.0) mg/dL AST (15-37) U/L ALT (12-78) U/L Alkaline Phosphatase (46-116) IU/L C-Reactive Protein (<=0.9) mg/dL Total Protein (6.4-8.2) g/dL Albumin (3.4-5.0) g/dL Lipase (73-393) U/L Specimen Type Urinvoid Urine Color Yellow Urine Appearance Clear Urine pH 6.0 (5.0-9.0) Ur Specific Langlois 1.025 (1.005-1.030) Urine Protein Negative (NEGATIVE) mg/dL Urine Glucose (UA) Negative (NEGATIVE) mg/dL Urine Ketones Negative (NEGATIVE) mg/dL Urine Occult Blood Trace-intact H (NEGATIVE) Urine Nitrite Negative (NEGATIVE) Urine Bilirubin Negative (NEGATIVE) Urine Urobilinogen 0.2 (0.2-1.0) E.U./dL Ur Leukocyte Esterase Negative (NEGATIVE) Urine RBC 0-5 /HPF Urine WBC 0-5 /HPF Ur Epithelial Cells Many H /LPF Urine Bacteria Few (NONE TO FEW) /HPF Urine HCG, Qual Negative Meds: Medications Generic Name Dose Route Start Last Admin Trade Name Freq PRN Reason Stop Dose Admin Sodium Chloride 10 ml 06/30/21 17:08 Sodium Chloride 0.9% 10 Ml Syringe FLUSH ASDIRECTED PRN Keep Vein Open Discontinued Medications Generic Name Dose Route Start Last Admin Trade Name Freq PRN Reason Stop Dose Admin Lactated Ringer's 1,000 mls @ 1,000 mls/hr 06/30/21 17:12 06/30/21 19:28 Ringers, Lactated IV 06/30/21 18:11 1,000 mls/hr .BOLUS ONE Administration Iopamidol 100 ml 06/30/21 17:11 06/30/21 17:49 Iopamidol 612 Mg/Ml 100 Ml Bottle IVPUSH 06/30/21 17:12 100 ml ONETIME STA Administration Morphine Sulfate 4 mg 06/30/21 17:28 06/30/21 19:28 Morphine 4 Mg/Ml Syringe IVPUSH 06/30/21 17:29 4 mg ONETIME ONE Administration Ondansetron HCl 4 mg 06/30/21 17:12 06/30/21 19:31 Ondansetron 4 Mg/2 Ml Sdv IV 06/30/21 17:13 4 mg ONETIME ONE Administration Ondansetron HCl Confirm 06/30/21 19:30 06/30/21 19:48 Ondansetron 4 Mg/2 Ml Sdv Administered 06/30/21 19:31 Not Given Dose 4 mg .[facility] Radiology Interpretation Free Text/Narrative:: Patient Name: SHAHBAZ PARISI Date of : 1985 Procedure: CT ABDOMEN PELVIS WITH CONTRAST Date of Service: 06/30/2021 EXAM: CT ABDOMEN PELVIS WITH CONTRAST INDICATION:ICD-10 Z98.84 Hx of gastric bypass ICD-10 R10.9 Abdominal pain Gastric bypass, pain COMPARISON(S): CT abdomen pelvis dated 03/10/2020. TECHNIQUE: The examination was performed with the intravenous administration of 100 ml of Omnipaque 350 contrast material. Oral contrast was not given. Coronal and sagittal multiplanar reformation reconstruction. FINDINGS: Lung bases:.Unremarkable Liver: Mildly enlarged liver. Gallbladder and bile ducts: Status post cholecystectomy. No bile duct dilatation. Spleen: Normal spleen size. No focal abnormality. Pancreas: Normal pancreas. Adrenal glands: Normal bilateral adrenal glands. Bilateral kidneys and ureters: No renal calculus or hydronephrosis. Unremarkable ureters. Bowel: Small sliding-type hiatal hernia similar to the prior study. Multiple staple lines and surgical clips consistent with prior gastric bypass. No associated fluid collection. Duodenum is unremarkable. Multiple small bowel suture lines are noted in the left abdomen with additional small bowel suture lines at the right lower quadrant. Unremarkable colon. Vessels: No abdominal aortic aneurysm. Inferior vena cava is unremarkable. Patent portal and splenic veins. Lymph nodes: No enlarged lymph nodes identified. Bladder: Normal urinary bladder. Pelvic viscera: Normal. No suspicious mass. Abdominal/pelvic wall: Protocol anterior abdominal wall midline postsurgical scar. Osseous: Mild lower thoracic spondylosis. IMPRESSION ABDOMEN AND PELVIS: 1. Status post gastric bypass procedure. 2. Small stable sliding-type hiatal hernia. 3. Status post cholecystectomy. 4. No small bowel dilatation to suggest obstruction. 5. Mild stable hepatomegaly. Findings were communicated by Donald Alarcon to BRUCE Melvin KOFFI on 06/30/2021 10:07 PM CDT. Critical Document Only message has been documented for BRUCE RAIN in the [employer] Critical Result system on 06/30/2021 10:07 PM CDT, Message ID [id number]. Finalized by: Donald Alarcon on 06/30/2021 10:07 PM CDT Patient/Procedure Information: [facility] MRN/OZZY: [id number]/ Order Number: [id number] Accession Number: [id number] Ordering Provider: BRUCE RAIN Authorizing Provider: BRUCE RAIN - Re-Assessments/Exams Free Text/Narrative Re-Assessment/Exam: 06/30/21 17:30 IV was established. Labs were drawn. LR 1 liter wide open. Zofran 4mg IVP Morphine 4mg IVP. Laboratory evaluation with a CBC of 10.3, normal hemoglobin normal platelet. CMP chloride 108 otherwise unremarkable. Normal liver enzymes. Lactic acid normal at 0.8. Magnesium 2.0. C-reactive protein less than 0.2. Lipase 145. Urinalysis with trace amount of occult blood, negative U RBCs. negative. It took quite some time for Posey to read her radiology report. The patient did have quite a bit of improvement with the above therapy. I reviewed the results of the CT scan that were rather unremarkable. Nothing acute. No bowel obstruction. I am unsure of what is causing her abdominal pain at this time I relayed to her. I wonder if it is not some part of constipation that she is struggled with for the past many years since her gastric bypass. I will have her try MiraLAX at home. She is not improving recheck in the clinic. She is [place] with this plan her questions are answered. Departure - Departure Time of Disposition: 22:15 Disposition: Home, Self-Care 01 Clinical Impression: Status post gastric bypass for obesity Abdominal pain Qualifiers: Abdominal location: right upper quadrant Qualified Code(s): R10.11 - Right upper quadrant pain - Discharge Information Instructions: Constipation, Adult, [id number], Abdominal Pain, Adult, [id number], Pain Medicine Instructions, [id number] Referrals: Issac Turner PA [Primary Care Provider] - Forms: ED Department Discharge Additional Instructions: Increase your fluids as much as possible over the next few days. Increase your Miralax until easy smooth bowel movements. Return to the ED if new or worsening symptoms. Follow up with PCP in the next 4-6 days if not improving sooner if worse. Sepsis Event Note (ED) - Focused Exam Vital Signs: Vital Signs Temp Pulse Resp BP Pulse Ox 06/30/21 17:00 96.7 F L 63 16 124/73 100 - My Orders Last 24 Hours: My Active Orders 06/30/21 17:08 Sodium Chloride 0.9% [Saline Flush] 10 ml FLUSH ASDIRECTED PRN Peripheral IV Insertion Adult [OM.PC] Stat 06/30/21 17:09 Peripheral IV Care [RC] . DIRECTED Abdomen Pelvis w Cont [CT] Stat - Assessment/Plan Last 24 Hours: My Active Orders 06/30/21 17:08 Sodium Chloride 0.9% [Saline Flush] 10 ml FLUSH ASDIRECTED PRN Peripheral IV Insertion Adult [OM.PC] Stat 06/30/21 17:09 Peripheral IV Care [RC] . DIRECTED Abdomen Pelvis w Cont [CT] Stat
[2021-06-30 17:48] LABS: ANION GAP 14.5 meq/L (7-15); CHLORIDE,CL 108 mmol/L (98-107); SODIUM,NA 141 mmol/L (136-145)
[2021-06-30 18:40] VITALS: BP 124/73; PULSE 63
[2021-06-30] MEDS ORDERED: Ondansetron 4 MG/2 ML SDV ONE (19:30)
== END 2021-06-30 22:20 | disposition home or self-care (01) ==
LOC: LL.ED 16:55
DX: R10.11 Right upper quadrant pain (principal); E66.9 Obesity, unspecified; Z68.39 Body mass index [BMI] 39.0-39.9, adult; Z98.84 Bariatric surgery status; Z88.2 Allergy status to sulfonamides; Z88.8 Allergy status to other drugs, medicaments and biological substances; Z79.899 Other long term (current) drug therapy
CPT/HCPCS: 36415; 74177; 80053; 81001; 81025; 83605; 83690; 83735; 85025; 86140; 96374; 96375; 99284; 99284-25; J2270; J2405; J7120; Q9967